=== PATIENT | male | born 1955 | race Caucasian/White ===

== ENCOUNTER 2017-05-23 05:00 | Inpatient (IN) | payer MEDICARE ==
[2017-05-23] MEDS ORDERED: Morphine 4 MG/ML VIAL ONE ×2 (05:46→07:11)
[2017-05-23] MEDS ORDERED: Enoxaparin Sodium 60 MG/0.6 ML SYRINGE ONE (05:46)
[2017-05-23 05:53] LABS: Troponin I Less than 0.010 ng/mL (< 0.028)
[2017-05-23 08:37] LABS: Phosphorus 2.1 mg/dL (2.3-4.7)
[2017-05-23 08:41] LABS: Troponin I Less than 0.010 ng/mL (< 0.028)
[2017-05-23] MEDS ORDERED: Multivitamins, Adult 10 ML, Folic Acid 1 MG, Thiamine HCl 100 MG in Dextrose 5 %-0.45 %... IV SCH ×8 (09:00→10:30)
[2017-05-23] MEDS ORDERED: Clopidogrel Bisulfate 75 MG TAB PO SCH (09:17)
[2017-05-23] MEDS ORDERED: Acetaminophen 325 MG TAB PO PRN (09:17)
[2017-05-23] MEDS ORDERED: Nitroglycerin 50 MG/250 ML BOT 250 ML IVPB SCH (09:17)
[2017-05-23] MEDS ORDERED: Ondansetron ODT 4 MG TAB PO PRN (09:17)
[2017-05-23 09:27] VITALS: BMI 19.9
[2017-05-23] MEDS ORDERED: Diazepam 5 MG TAB PO PRN ×2 (09:37→09:38)
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
[2017-05-23] MEDS: Morphine PF 1 MG/ML SYR IVP PRN ×2 (10:09→13:47)
[2017-05-23] MEDS: Metoprolol Tartrate 25 MG TAB PO SCH ×2 (10:10→21:00)
[2017-05-23] MEDS: Famotidine 20 MG TAB PO SCH ×2 (10:10→21:00)
[2017-05-23] MEDS: Nicotine 14 MG PATCH TD SCH (10:34)
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
--- NOTE | 2017-05-23 13:44 | HP ---
I have reviewed the history and physical of Dr. Rojas Bonilla and agree with her assessment and plan. Briefly, Mr. Lynch is a 62-year-old white male patient who was admitted with chest pain. It was ass ociated with diaphoresis and palpitations, but no nausea or vomiting. He had initially been seen as a transfer from [facility]. He received some nitro in the ER, but continued to have chest pa in and nitroglycerin drip was started. He was subsequently admitted to the Intensive Care Unit. PHYSICAL EXAMINATION: GENERAL: He is awake, alert, currently complains of chest pain, but otherwise no distress. VITAL SIGNS: He is afebrile. Respirations are 18, his heart rate is 86 regular, blood pressure is 137/82, his O2 sats are 94% on room air. ENT: Normal. NECK: Supple, without JVD. CARDIAC: The PMI is in the fifth intercostal space. S4 gallop. No murmur or rub noted. LUNGS: Diminished, but clear without rales, rhonchi or wheezes. ABDOMEN: Flat and soft. No guarding, rebound or rigidity. NEUROLOGIC: No focal deficits. LABORATORY DATA: CBC: White count is 13,200, hemoglobin 15.1, hematocrit 45.8. Sodium 137, potassi um 3.8, chloride 101, bicarbonate is 17. His EKG shows no acute ischemic changes. Initial troponins are less than 0.01. ASSESSMENT: Chest pain, possible unstable angina. PLAN: Continue nitro drip. Consult Cardiology. We have begun Plavix as he refused aspirin.
[2017-05-23] MEDS: HYDROcodone/Acetaminophen 5/325 mg Tablet PO PRN ×2 (15:22→20:57)
--- NOTE | 2017-05-23 16:31 | CON ---
DATE OF SERVICE: 05/23/2017 SERVICE: Pulmonary Medicine. REASON FOR CONSULTATION: ICU patient. HISTORY OF PRESENT ILLNESS: The patient is a 62-year-old white male with past medical history signif icant for essentially nothing. He presented to the hospital with some chest discomfort. This was as sociated with left arm numbness. It was a substernal chest discomfort described as a pressure. This was 8/10 in severity. He presented to an outside emergency department where an initial troponin was above the lower limits of normal for the laboratory. He was given some medications and subsequently transferred to our way. Initial EKG did not demonstrate anything that looked like an ST elevation. On arrival here, he was given some pain medications. He was also on a nicotine patch. He started t o kind of settle down a little bit. He denies any current significant shortness of breath beyond his baseline. Roughly 1 week ago, he had something that he would characterize as an upper respiratory t ract infection. He struggled through it with some [id number] medications then he started to sl owly feel a little bit better. He was wheezing and coughing for a period of time, but this is actual ly improving. PAST MEDICAL HISTORY: 1. Hypertension. 2. Coronary artery disease. 3. History of GI bleed. 4. Alcohol abuse. PAST SURGICAL HISTORY: Left foot surgery. MEDICATIONS: List of his inpatient medications was reviewed. A couple of small updates were made. ALLERGIES: ASPIRIN. SOCIAL HISTORY: He drinks 8-9 beers daily. He has been doing this for an extended period of time. He has had withdrawal features previously, but never any seizure associated with that. He smokes a h marin a pack a day. He has a [id number] history of smoking. He denies any illicit drug use. He has no exposures to chemicals, dust, asbestos or tuberculosis. REVIEW OF SYSTEMS: General, head, ears, eyes, nose, throat, cardiovascular, respiratory, GI, , mus culoskeletal, neurologic and skin is negative except as mentioned in the HPI. PHYSICAL EXAMINATION: VITAL SIGNS: Afebrile, pulse 73, blood pressure 132/63, respirations 18, saturation 93% on room air. GENERAL: The patient is awake and alert, in no apparent distress. LUNGS: No decreased air entry. There is no prolonged expiratory phase, but I do not hear any denominational itious sounds, wheezing, rhonchi, or crackles. HEART: Normal rate, regular. ABDOMEN: Soft, nontender, nondistended, bowel sounds positive. MUSCULOSKELETAL: No cyanosis or clubbing. No pitting in the bilateral lower extremities. NEUROLOGIC: Grossly nonfocal. LABORATORY DATA: Phosphorus 2.1. Magnesium 2.0. Cardiac enzymes x2 are below the assay limit of no rmal. Laboratories from outside hospital were also reviewed. Of note, his white count was 13.2, ani on gap elevated. Liver function studies were essentially unremarkable. INR was normal at 1.2. IMAGIN. Chest x-ray from outside facility demonstrates no acute cardiopulmonary abnormality. 2. EKG demonstrates some inverted T-waves with no ST elevation. ASSESSMENT: 1. Chest pain, improving. 2. Chronic obstructive pulmonary disease, suspected with recent acute exacerbation. 3. Alcohol abuse. 4. Tobacco abuse. 5. History of gastrointestinal bleed. PLAN: The patient is currently stable from a hemodynamic and respiratory perspective for transition to the telemetry unit. His last drink was yesterday. We will follow his ASE. If he goes on to deve lop delirium, he may need to transition back to the ICU, but this is likely 24-48 hours away. [place], he is cool, calm and collected. I will provide him with some DuoNebs over the next 24 hours. I f these provide him with a significant improvement in symptoms, he will need to be evaluated in the o utpatient setting for COPD. I will continue to follow for 1 more day.
[2017-05-23] MEDS: Atorvastatin Calcium 40 MG TAB PO SCH (21:00)
[2017-05-23] MEDS ORDERED: Enoxaparin Sodium 60 MG/0.6 ML SYRINGE SC SCH (21:00)
[2017-05-24] MEDS ORDERED: Diazepam 5 MG TAB PO PRN (04:00)
[2017-05-24 05:44] LABS: Anion Gap 10 mmol/L (10-20); BUN (Urea Nitrogen) 11 mg/dL (8.4-25.7); Calc. Creatinine Clearance 87 mL/min (70-130); Calcium 8.9 mg/dL (7.8-10.44); Carbon Dioxide 30 mmol/L (23-31); Chloride 99 mmol/L (98-107); Cholesterol 116 mg/dl (< 200 Desired); Estimated GFR-MDRD Greater than 90; LDL Cholesterol, Calculated 63 mg/dL
--- NOTE | 2017-05-24 06:28 | PDOC.FM ---
- Subjective Subjective: C/o substernal chest pain described as pressure that is improved from yesterday. States he has some radiation of tingling down his left arm but states he feels better overall. States his chest pain feels better when he sits up and leans forward.. - Objective Vital Signs & Weight: Vital Signs (12 hours) Temp Pulse Resp BP BP BP Pulse Ox 05/24/17 05:53 155/76 H 05/24/17 04:00 98.0 F 73 16 155/76 H 94 L 05/23/17 23:56 98.2 F 64 20 144/67 H 144/67 H 92 L 05/23/17 21:17 141/70 H 05/23/17 18:45 98.0 F 76 18 141/70 H 93 L Most Recent Monitor Data Heart Rate from ECG 75 NIBP 152/60 NIBP BP-Mean 83 Respiration from ECG 18 SpO2 91 I&O: 05/22/17 05/23/17 05/24/17 06:59 06:59 06:59 Intake Total 2347 Output Total 1550 Balance 797 Result Diagrams: 05/24/17 04:14 05/24/17 04:14 <Ifeoma Hernandez - Last Filed: 05/24/17 11:33> - Objective Vital Signs & Weight: Vital Signs (12 hours) Temp Pulse Resp BP BP Pulse Ox 05/24/17 11:30 97.6 F 75 12 135/66 94 L 05/24/17 08:48 98.6 F 78 16 94 L 05/24/17 07:52 98.6 F 78 16 143/64 H 94 L 05/24/17 05:53 155/76 H 05/24/17 04:00 98.0 F 73 16 155/76 H 94 L Most Recent Monitor Data Heart Rate from ECG 75 NIBP 152/60 NIBP BP-Mean 83 Respiration from ECG 18 SpO2 91 I&O: 05/23/17 05/24/17 05/25/17 06:59 06:59 06:59 Intake Total 2347 Output Total 1550 Balance 797 Result Diagrams: 05/24/17 04:14 05/24/17 04:14 <Kalen Bingham - Last Filed: 05/24/17 14:33> Phys Exam - Physical Examination Constitutional: NAD HEENT: PERRLA, moist MMs Respiratory: no wheezing, no rales, no rhonchi, clear to auscultation bilateral Cardiovascular: RRR, no significant murmur Gastrointestinal: soft, non-tender, no distention, positive bowel sounds Musculoskeletal: no edema, pulses present Neurological: non-focal, normal sensation Psychiatric: normal affect, A&O x 3 Skin: no rash <Ifeoma Hernandez - Last Filed: 05/24/17 11:33> Dx/Plan (1) Unstable angina Status: Acute (2) Pericarditis Code(s): I31.9 - DISEASE OF PERICARDIUM, UNSPECIFIED Status: Acute (3) HTN (hypertension) Code(s): I10 - ESSENTIAL (PRIMARY) HYPERTENSION Status: Acute - Plan Plan: 62 yo m transferred from [place] for an NSTEMI, admitted for unstable angina, now with concern for acute pericarditis. 1.)Suspected Pericarditis-positional chest pain troponins negative EKG: t wave inversions BB and statin started Cardiology consulted who recommend echo, BNP, UDS Will provide steroids if meets dx criteria for pericarditis since pt reports he cannot take nsaids 2.)Unstable Angina, resolved. trops negative EKG wnl Continue BB, statin, nitro prn, morphine prn will ask cardiology if theraputic lovenox is necessary 2.)Suspected COPD, not requiring O2, not in respiratory distress duonebs q4hr prn recommend follow-up in outpatient setting 3.)HTN, controlled Continue bb 4.)HLD, controlled Continue statin <Ifeoma Hernandez - Last Filed: 05/24/17 11:33> Attending Addendum - Attending Addendum I personally evaluated the patient and discussed the management with Dr. Liseth Varner. I agree with the History, Examination, Assessment and Plan documented above with any addition or exceptions noted below. Patient reports improvement in pain. Initially thought to be pericarditis, but echo was normal. Obtaining stress test tomorrow and await further cardiology recs. Holding further anticoagulation as no NSTEMI or other form of ACS. <Kalen Bingham - Last Filed: 05/24/17 14:33>
[2017-05-24 07:39] LABS: Neutrophil 78 % (42-75); Reactive Lymphocytes 1 % (0-10); Red Blood Cell (RBC) Count 4.68 mill/uL (4.70-6.10); White Blood Cell (WBC) Count 6.3 thou/uL (4.8-10.8)
[2017-05-24] MEDS: Famotidine 20 MG TAB PO SCH ×2 (08:48→20:47)
[2017-05-24] MEDS: Metoprolol Tartrate 25 MG TAB PO SCH ×2 (08:49→20:47)
[2017-05-24] MEDS: Folic Acid 1 MG TAB PO SCH (08:49)
[2017-05-24] MEDS: Multivitamin W/ Minerals 1 TAB PO SCH (08:49)
[2017-05-24] MEDS: Magnesium Oxide 400 MG TAB PO SCH (08:49)
[2017-05-24] MEDS: HYDROcodone/Acetaminophen 5/325 mg Tablet PO PRN (08:49)
[2017-05-24] MEDS ORDERED: Clopidogrel Bisulfate 75 MG TAB PO SCH (09:00)
[2017-05-24] MEDS ORDERED: FLU VACC QS2017-18 36 mo. & older 0.5 ML SYRINGE IM ONE (09:00)
[2017-05-24 09:30] LABS: Amphetamine Not Detected (NotDetected); Methadone Not Detected (NotDetected); Methamphetamine Not Detected (NotDetected)
[2017-05-24] MEDS: Nicotine 14 MG PATCH TD SCH (09:59)
[2017-05-24 10:00] LABS: ALT (SGPT) 17 U/L (8-55); AST (SGOT) 37 U/L (5-34); Alkaline Phosphatase 70 U/L (40-150); Bilirubin, Direct 0.6 mg/dL (0.1-0.3); Bilirubin, Total 1.4 mg/dL (0.2-1.2); Protein, Total 6.9 g/dL (5.8-8.1)
--- NOTE | 2017-05-24 12:04 | PDOC.CTH ---
Cardiology Progress Note - Subjective He is doing well. No chest pain, tightness, pressure, SOB. His UDS is positive for BZD and cannabis. - Objective Vital Signs Temp Pulse Resp BP BP Pulse Ox 05/24/17 08:48 98.6 F 78 16 94 L 05/24/17 07:52 98.6 F 78 16 143/64 H 94 L 05/24/17 05:53 155/76 H 05/24/17 04:00 98.0 F 73 16 155/76 H 94 L 05/23/17 05/24/17 05/25/17 06:59 06:59 06:59 Intake Total 2347 Output Total 1550 Balance 797 - Physical Examination General/Neuro: alert & oriented x3, NAD Neck: no JVD present Lungs: unlabored respirations Heart: RRR Abdomen: NT/ND Extremities: other: (no edema) - Telemetry Telemetry Rhythm: NSR - Labs Result Diagrams: 05/24/17 04:14 05/24/17 04:14 Troponin/CKMB Troponin I Less than 0.010 ng/mL (< 0.028) 05/23/17 08:06 - Assessment/Plan 1. Alcohol abuse. 2. Substance abuse 3. Chest pain, positional symptoms may represent pericarditis however he has had significant improvement of symptoms without any therapies which goes against pericarditis. I woudl not treat with steroids for now. 4. Normal LV function. PLAN: - Will do MPI.
[2017-05-24] MEDS: Lorazepam 2 MG/ML VIAL SLOW IVP PRN ×2 (12:24→20:47)
--- NOTE | 2017-05-24 15:21 | PRG ---
DATE OF SERVICE: 05/24/2017 SERVICE: Pulmonary Medicine. INTERVAL HISTORY: The patient is doing fine from a respiratory standpoint. He is on room air. His mentation is good. He does not have any tremor. It does not appear that he has any objective findin gs consistent with acute withdrawal symptoms from alcohol. That being said, internally, he does stil l nervous and has required a couple doses of Ativan, particularly during daytime hours. PHYSICAL EXAMINATION: VITAL SIGNS: Afebrile, pulse 75, blood pressure 135/66, respirations 12, saturation 94% on room air. GENERAL: Patient is awake and alert, in no apparent distress. LUNGS: Excellent air entry with no prolonged expiratory phase, wheezing, rhonchi or crackles. HEART: Normal rate, regular. ABDOMEN: Soft, nontender, nondistended. Bowel sounds positive. MUSCULOSKELETAL: No cyanosis or clubbing. No pitting in the bilateral lower extremities. NEUROLOGIC: Grossly nonfocal. LABORATORY DATA: WBC 6.3, hemoglobin 13.6, platelets 82,000. Neutrophil count is 78%. Basic metabo lic profile and liver function studies are all unremarkable except for his bilirubin of 1.4. BNP is slightly elevated. Cardiac enzymes negative x3. HIV is nonreactive. ASSESSMENT: 1. Chest pain, resolved. 2. Chronic obstructive pulmonary disease, suspected with recent acute exacerbation. 3. Alcohol abuse. 4. Tobacco abuse. 5. History of gastrointestinal bleed. PLAN: At this point, the patient has no further requirements for inpatient Pulmonary or Critical Car e opinion. As such, we will sign off. If he decompensates, call Dr. Figueroa over the weekend. If you have any questions or concerns, please give us a phone call.
[2017-05-24] MEDS: Atorvastatin Calcium 40 MG TAB PO SCH (20:47)
[2017-05-25] MEDS ORDERED: Regadenoson 0.4 MG/5 ML SYRINGE ONE ×2 (03:48→14:45)
[2017-05-25 05:19] LABS: #Eosinphils 0.1 thou/uL (0.0-0.7); #Lymphocytes 1.3 thou/uL (1.20-3.40); #Neutrophils 4.5 thou/uL (1.40-6.50); %Basophils 0.1 % (0.0-1.0); %Eosinophils 1.9 % (0.0-10.0); %Lymphocytes 18.8 % (21.0-51.0); %Monocytes 14.5 % (0.0-10.0); Mean Platelet Volume 9.5 fL (7.4-10.4); Red Blood Cell (RBC) Count 4.97 mill/uL (4.70-6.10); White Blood Cell (WBC) Count 6.9 thou/uL (4.8-10.8)
[2017-05-25 05:37] LABS: Anion Gap 12 mmol/L (10-20); BUN (Urea Nitrogen) 9 mg/dL (8.4-25.7); Calc. Creatinine Clearance 74 mL/min (70-130); Calcium 9.3 mg/dL (7.8-10.44); Carbon Dioxide 29 mmol/L (23-31); Chloride 98 mmol/L (98-107); Estimated GFR-MDRD 87
--- NOTE | 2017-05-25 07:10 | PDOC.FM ---
- Subjective Subjective: Pt feels well this morning. He still complains of some chest pain, though it has improved since admission. He denies SOB, radiation of pain, peripheral numbness or tingling. There were no acute issues over night. - Objective MAR Reviewed: Yes Vital Signs & Weight: Vital Signs (12 hours) Temp Pulse Resp BP Pulse Ox 05/25/17 04:00 98.2 F 81 20 132/76 99 05/24/17 20:45 97.4 F L 91 16 143/67 H 94 L Weight Weight 54.885 kg Most Recent Monitor Data Heart Rate from ECG 75 NIBP 152/60 NIBP BP-Mean 83 Respiration from ECG 18 SpO2 91 I&O: 05/24/17 05/25/17 05/26/17 06:59 06:59 06:59 Intake Total 2347 240 Output Total 1550 Balance 797 240 Result Diagrams: 05/25/17 04:50 05/25/17 04:50 <Saeed Nation - Last Filed: 05/25/17 11:00> - Objective Vital Signs & Weight: Vital Signs (12 hours) Temp Pulse Resp BP BP Pulse Ox 05/25/17 11:30 98.0 F 105 H 18 122/82 96 05/25/17 04:00 98.2 F 81 20 132/76 99 Weight Weight 54.885 kg Most Recent Monitor Data Heart Rate from ECG 75 NIBP 152/60 NIBP BP-Mean 83 Respiration from ECG 18 SpO2 91 I&O: 05/24/17 05/25/17 05/26/17 06:59 06:59 06:59 Intake Total 2347 240 Output Total 1550 Balance 797 240 Result Diagrams: 05/25/17 04:50 05/25/17 04:50 <Kalen Bingham - Last Filed: 05/25/17 11:39> Phys Exam - Physical Examination Constitutional: NAD HEENT: PERRLA, moist MMs Neck: no JVD, full ROM Respiratory: clear to auscultation bilateral Cardiovascular: RRR, no significant murmur Gastrointestinal: soft, non-tender, no distention Musculoskeletal: no edema, pulses present Chest pain reproducible with palpation Neurological: non-focal Lymphatic: no nodes Psychiatric: normal affect, A&O x 3 Skin: no rash, normal turgor <Saeed Nation - Last Filed: 05/25/17 11:00> Dx/Plan (1) HTN (hypertension) Code(s): I10 - ESSENTIAL (PRIMARY) HYPERTENSION Status: Chronic QualifierTitle: Hypertension type: essential hypertension Qualified Code( s): I10 - Essential (primary) hypertension (2) Pericarditis Code(s): I31.9 - DISEASE OF PERICARDIUM, UNSPECIFIED Status: Acute QualifierTitle: Pericarditis type: unspecified type Chronicity: unspecified Qualified Code(s): I31.9 - Disease of pericardium, unspecified (3) Unstable angina Status: Acute - Plan Plan: 62 yo m transferred from [place] for an NSTEMI, admitted for unstable angina, now with concern for acute pericarditis. 1.)Suspected Pericarditis-positional chest pain -troponins negative -EKG: t wave inversions -BB and statin started -Cardiology consulted who recommend echo, BNP, UDS -Will provide steroids if meets dx criteria for pericarditis since pt reports he cannot take nsaids 2.)Unstable Angina, resolved. -trops negative -EKG wnl -Continue BB, statin, nitro prn, morphine prn -stress test today -no ASA or NSAIDs on discharge dt hx of GI bleed 2.)Suspected COPD, not requiring O2, not in respiratory distress duonebs q4hr prn recommend follow-up in outpatient setting 3.)HTN, controlled Continue bb 4.)HLD, controlled Continue statin Dispo - likely dc tomorrow after stress is complete <Saeed Nation - Last Filed: 05/25/17 11:00> Attending Addendum - Attending Addendum I personally evaluated the patient and discussed the management with Dr. Nation. I agree with the History, Examination, Assessment and Plan documented above with any addition or exceptions noted below. Pericarditis appears to be excluded based on Echo and history per Cardiology. Patient is having stress today to exclude ACS as cause, though enzymes have been undetectable. His pain is positional in nature and worsens with palpation, consider MSK cause of pain. Await final cardiology recs and stress results, likely stable for discharge unless stress testing indicates more invasive intervention needed. He has not shown any signs of alcohol withdrawal overnight or this morning. <Kalen Bingham - Last Filed: 05/25/17 11:39>
[2017-05-25] MEDS: Multivitamin W/ Minerals 1 TAB PO SCH (11:32)
[2017-05-25] MEDS: Metoprolol Tartrate 25 MG TAB PO SCH (11:32)
[2017-05-25] MEDS: Magnesium Oxide 400 MG TAB PO SCH (11:33)
[2017-05-25] MEDS: Nicotine 14 MG PATCH TD SCH (11:33)
[2017-05-25] MEDS: Famotidine 20 MG TAB PO SCH (11:33)
[2017-05-25] MEDS: Folic Acid 1 MG TAB PO SCH (11:33)
[2017-05-25] MEDS: Lorazepam 2 MG/ML VIAL SLOW IVP PRN ×2 (11:33→17:38)
--- NOTE | 2017-05-25 12:18 | NM ---
MYOCARDIAL PERFUSION SCAN WITH SPECT IMAGING: HISTORY: Chest pain. TECHNIQUE/FINDINGS: Examination is performed using 28.3 mCi 99m-technetium sestamibi on the stress and 9.3 on the resting images. This shows fairly normal distribution of radiopharmaceutical without signs of ischemia or sc ar. WALL MOTION: There is symmetric contractility to the ventricle. LEFT VENTRICULAR EJECTION FRACTION: The calculated left ventricular ejection fraction is 64%. IMPRESSION: Unremarkable myocardial perfusion scan. POS: LEONARD
[2017-05-25 16:42] VITALS: BP 140/83; TEMP 97.7
== END 2017-05-25 21:42 | disposition home or self-care (01) | DRG 311 ==
LOC: ERS 05:00 → CCU 05:47 → 2NO 16:39
PROVIDERS: ADMIT Emergency Medicine; ATTEND Emergency Medicine
DX: I20.0 Unstable angina (principal); E87.2 Acidosis; I10 Essential (primary) hypertension; J44.9 Chronic obstructive pulmonary disease, unspecified; E78.5 Hyperlipidemia, unspecified; F17.210 Nicotine dependence, cigarettes, uncomplicated; F10.229 Alcohol dependence with intoxication, unspecified; D72.829 Elevated white blood cell count, unspecified; Z87.19 Personal history of other diseases of the digestive system
CPT/HCPCS: 36415; 78452; 80048; 80061; 80076; 80306; 83735; 83880; 84100; 84484; 85025; 87389; 93005; 93017; 93306; 96361; 96365; 96366; 96375; 96376; A9500; J1650; J2060; J2270; J2274; J2785; J3411; J3475; J7042; J7050